=== PATIENT | male | born 1930 | race Caucasian/White ===

== ENCOUNTER 2016-10-19 18:30 | Inpatient (IN) | payer OTHER, MEDICARE ==
[~2016-10-19] VITALS: Ht 172.7 cm; Wt 83.5 kg
--- NOTE | ~2016-10-19 | 2DMMODE ---
[facility] [place] [address] 2 D/M-MODE ECHOCARDIOGRAM Name: MAISHA OLIVER Room #: 211-P [facility] IN M.R.#: [id number] Admission: 10/19/16 Attend Phys: Sandra Rodrigues Discharge: Date of : 31 Date of Service: 10/20/16 1035 Report #: [id number] THIS REPORT FOR: //name// Transthoracic Echocardiography Ordering physician: Dmitriy Grijalva Referring physician: MD Imelda Garcia Eric K. Leroy, Omer [employer] Salesperson: JOSE ANTONIO Multani Indications/History: Pulmonary embolism. BP: 138 / HR: 64bpm Height: 68in Weight: 179.6lb 84 Study data: M-mode, complete 2D, complete spectral Doppler, and color Doppler. Location: Echo laboratory. Routine. Image quality was fair. 2D measurements Normal Normal LVID ED 53.1mm 36-57 IVS ED 10.9mm 6-11 LVID ES 36.5mm 23-40 LVPW ED 12mm 6-11 LA volume 30ml/m2 16-28 AoRoot diam 37.1mm 21-37 index ED LVOT diameter 21mm 18-23 Findings: Left ventricle: The cavity size was normal. Wall thickness was normal. Systolic function was normal. The estimated ejection fraction was in the range of 55% to 60%. Wall motion was normal. Right ventricle: The cavity size was normal. Systolic function was normal. Right atrium: The atrium was dilated. Left atrium: The atrium was normal in size. Volume index: 30ml/m2 (S). Aortic valve: Trileaflet; mildly calcified leaflets. Doppler: There was no stenosis. No regurgitation. [facility] [place] [address] 2 D/M-MODE ECHOCARDIOGRAM Name: MAISHA OLIVER Room #: 211-P [facility] IN M.R.#: [id number] Admission: 10/19/16 Attend Phys: Julio ChoKaushik Sandra Lafleur Discharge: Date of : 31 Date of Service: 10/20/16 1035 Report #: [id number] Peak velocity: 143.5cm/s (S). Mitral valve: Mildly calcified annulus. Doppler: There was no evidence for stenosis. Mild regurgitation. Peak E-wave velocity: 86.8cm/s. Peak gradient: 3mm Hg (D). Peak A-wave velocity: 88.3cm/s. Tricuspid valve: Structurally normal valve. Doppler: There was no evidence for stenosis. No regurgitation. Regurgitant peak velocity: 303.8cm/s. Peak RV-RA gradient: 37mm Hg (S). Pulmonic valve: Structurally normal valve. Doppler: There was no evidence for stenosis. No regurgitation. Pericardium: There was no pericardial effusion. Aorta: Aortic root: The aortic root was normal in size. Pulmonary artery: Systolic pressure was estimated to be 42mm Hg. Diastolic function: Doppler parameters are consistent with abnormal left ventricular relaxation (grade 1 diastolic dysfunction). Systemic veins: Inferior vena cava: The vessel was dilated; the respirophasic diameter changes were in the normal range (= 50%). Conclusions 1. Left ventricle: Systolic function was normal. The estimated ejection fraction was in the range of 55% to 60%. Wall motion was normal. Doppler parameters are consistent with abnormal left ventricular relaxation (grade 1 diastolic dysfunction). 2. Aortic valve: Trileaflet; mildly calcified leaflets. There was no stenosis. No regurgitation. 3. Mitral valve: Mildly calcified annulus. Mild regurgitation. 4. Pulmonary arteries: Systolic pressure was estimated to be 42mm Hg. 5. Pericardium, extracardiac: There was no pericardial effusion. <ELECTRONICALLY SIGNED> By: Kevin Toth MD, [facility] 10/20/16 1250 1035 49 Kevin Toth MD, FAC /marcia
--- NOTE | ~2016-10-19 | HC ---
[facility] [place] [address] CONSULTATION Name: MAISHA OLIVER Room #: 211-P [facility] IN M.R.#: [id number] Admission: 10/19/16 Attend Phys: Julio Lafleur MD Discharge: Date of : 31 Report #: [id number] THIS REPORT FOR: //name// CC: Moy Mcclain DATE OF SERVICE: 10/20/2016 DATE OF SERVICE: 10/20/2016 INDICATION: CAD. HISTORY OF PRESENT ILLNESS: This is an 86-year-old gentleman with a history of CABG, coronary angioplasty, presenting with chest pains, and shortness of breath. The other night, while walking up a flight of stairs, he developed significant dyspnea and chest discomfort. He had to rest for his symptoms to resolve. When I saw him in the office yesterday, he was noted to have new EKG changes and he was originally scheduled for a cardiac catheterization next week. However, last evening, he had similar symptoms at rest, although less intense. He presented to the ER for an evaluation. The D-dimer was markedly abnormal. A VQ scan revealed bilateral mismatch deficits consisting with high probability for PE. He remained stable with no further episodes of chest pains, shortness of breath or congestion. PAST MEDICAL HISTORY: CABG in 1998. NONSTEMI in August 2015, undergoing placement of a drug-eluting stent to the left main/proximal LAD. He has a patent SILVA to the distal LAD, patent sequential vein graft to the first and second obtuse marginal arteries. There is severe diffuse disease in the vein graft to a small PDA, medical therapy is recommended. History of hypertension, hypercholesterolemia, chronic edema, spinal stenosis and chronic pain syndrome. ALLERGIES: CONTRAST, ZETIA, BRILINTA. MEDICATIONS: Include Crestor 10 mg, Toprol-XL 25 mg, aspirin once a day, Imdur 30 mg, Plavix 75 mg daily, Protonix and losartan. SOCIAL HISTORY: Negative for tobacco use. FAMILY HISTORY: Negative for premature CAD. REVIEW OF SYSTEMS: A full 10-point review of systems performed. Only the pertinent positives and negatives are described in the HPI. PHYSICAL EXAMINATION: [facility] [address] [place] [address] CONSULTATION Name: MAISHA OLIVER Room #: 211-P [facility] IN M.R.#: [id number] Admission: 10/19/16 Attend Phys: Julio Lafleur MD Discharge: Date of : 31 Report #: [id number] VITAL SIGNS: Blood pressure is 140/70, heart rate is 80 beats per minute. GENERAL APPEARANCE: An elderly appearing male in no acute respiratory distress. HEAD AND EYES: Normocephalic. Sclerae are anicteric. ENT: Oral mucosa moist. NECK: Supple. LUNGS: Clear to auscultation. CARDIAC: Regular rate and rhythm, S1, S2 positive. ABDOMEN: Soft. EXTREMITIES: No major joint deformities. NEUROLOGIC: Alert and oriented x 3 ECG reveals sinus rhythm, inferior wall PR, T-wave inversions in V1-V3. LABORATORY VALUES: Peak troponin is 0.14. White count is 6.8, hemoglobin 14.4, sodium is 139, creatinine is 1.3. ASSESSMENT: 1. Bilateral pulmonary emboli, currently on Levonox. Would favor Xarelto if possible. We will await pulmonary recommendations. The etiology is unclear, will arrange for lower extremity Doppler studies. 2. White count 6.8, hemoglobin 14.4. 3. Minimal troponin elevation in the indeterminate range. This is probably not indicative of an infarct, more likely related to mismatch from hypoxia. 4. Coronary artery disease/CABG/coronary intervention. Stable, continue with medical therapy. At this time, we will stop Plavix altogether. 5. Hypertension. 6. Hypercholesterolemia. 7. Spinal stenosis. Thank you for allowing me to participate in the care of your patient. <ELECTRONICALLY SIGNED> By: Elkin Salomon MD 10/20/16 0934 0807 0831 Elkin Salomon MD /nt
--- NOTE | ~2016-10-19 | EKG ---
[address] [place] [address] ELECTROCARDIOGRAM REPORT Name: MAISHA OLIVER Room #: 211-P ADM IN M.R.#: [id number] Admission: 10/19/16 Attend Phys: Blaine Minor MD Discharge: Date of : 31 Report #: [id number] THIS REPORT FOR: //name// [facility] Test Date: 2016-10-20 Test Time: 02:10:11 Pat Name: MAISHA OLIVER Department: Room: 211 P Gender: M [employer] Good[employer] Hemmer: craig : 1930 Requested By: Sofia Collins Order Number: [id number] MD: Kevin Toth Measurements Intervals [place] Rate: 74 P: 28 OR: 190 QRS: -45 QRSD: 96 T: -27 QT: 489 QTc: 543 Interpretive Statements Sinus rhythm Inferior infarct, age indeterminate Abnormal T, probable ischemia, anterior leads Prolonged QT interval No previous ECG available for comparison Electronically Signed On 10-20-2016 7:49:09 INTERNAL SALESPERSON by Kevin Toth [email or web address] <ELECTRONICALLY SIGNED> By: Kevin Toth MD, [facility] 10/20/16 0749 9 9 Kevin Toth MD, [facility] /EPI
--- NOTE | ~2016-10-19 | HC ---
[facility] [place] [address] CONSULTATION Name: MAISHA OLIVER Room #: 211-P [facility] IN M.R.#: [id number] Admission: 10/19/16 Attend Phys: Julio Lafleur MD Discharge: 10/22/16 Date of : 31 Report #: [id number] THIS REPORT FOR: //name// CC: Moy Mcclain PRIMARY CARE PHYSICIAN: Moy Segura M.D. REFERRING PHYSICIAN: Elkin Salomon M.D. REASON FOR REFERRAL: Pulmonary embolus. HISTORY OF PRESENT ILLNESS: The patient is an 86-year-old white male who presented to the Emergency Room with progressive shortness of breath and chest pain. Subsequent evaluation including V/Q scan showed high probability scan for pulmonary embolus. A pulmonary consultation was requested. The patient has known coronary artery disease. He is followed by Dr. Salomon. He has had coronary artery bypass surgery in the past along with PTCA and stent placement. About a year ago, he started to develop chronic back pain due to worsening spondylolisthesis. As a result, he has been sedentary for the past year. About 3 days prior to presentation, the patient developed mid sternal chest discomfort. Tuesday evening, his chest pain worsened with presumed "sensation of doom." Symptoms subsided. He was then seen by Dr. Salomon yesterday. He was scheduled for outpatient cardiac catheterization next week. With worsening symptoms, he presented to the Emergency Room. The patient otherwise denies any family history of VTE or venous thromboembolic disease. He denies any recent travel or recent trauma or surgery. PAST MEDICAL HISTORY: As mentioned above including coronary artery disease, undergone coronary artery bypass surgery in 1998, a history of non-STEMI in 2014, undergoing stent placement along with multiple PTCAs in the past. He also has a history of hypertension, hypercholesterolemia, spinal stenosis and spondylolisthesis with chronic back pain. PAST SURGICAL HISTORY: Otherwise, as mentioned above. ALLERGIES: Contrast dye which causes an anaphylactic reaction, Brilinta causes dyspnea and Zetia causes thrombocytopenia. [facility] [address] [place] [address] CONSULTATION Name: MAISHA OLIVER Room #: 211-P [facility] IN M.R.#: [id number] Admission: 10/19/16 Attend Phys: Julio Lafleur MD Discharge: 10/22/16 Date of : 31 Report #: [id number] HOME MEDICATIONS: Include Crestor, Toprol, aspirin, Imdur, Plavix, Protonix and losartan. FAMILY HISTORY: Remarkable for coronary artery disease in the father. Both parents in a motor vehicle accident. SOCIAL HISTORY: He had smoked for several years, quit in 1963 after Surgeon General had announced that tobacco products are unhealthy. He is . He is a retired associate field service engineer. He drinks occasionally. REVIEW OF SYSTEMS: The patient states that he has lost about 20 pounds because of dental problems. He is scheduled to have 2 crown work performed soon. Otherwise, a 10-point system review negative other than mentioned above. PHYSICAL EXAMINATION: GENERAL: He is awake and alert, in no apparent distress. VITAL SIGNS: Temperature is 98.4 degrees Fahrenheit, pulse is 64, respiratory rate is 20, blood pressure 137/79 mmHg and saturation 97%. HEENT: Normocephalic and atraumatic. NECK: Supple, without any lymphadenopathy or thyromegaly. CHEST: Breath sounds are clear bilaterally without any rales or wheezes. CARDIOVASCULAR: Normal S1 and S2. There are no murmurs, rubs or gallop. There is no JVD. There is no carotid bruit. Pulses are 2+/4+ bilaterally. ABDOMEN: Soft and nontender. No organomegaly or masses felt. EXTREMITIES: There is no edema, cyanosis or clubbing. LABORATORY DATA: V/Q scan again shows high probability scan. D-dimer is 13.3. Troponin 0.11. Leg Doppler ultrasound shows non-occlusive DVT involving his right popliteal vein. IMPRESSION: 1. High probability scan in this 86-year-old white male. He has been sedentary for the past year due to chronic back pain. The patient likely has bilateral pulmonary embolus along with right popliteal deep vein thrombosis. This is felt to be provoked with risk factors. 2. Coronary artery disease, status post coronary artery bypass surgery. 3. Chronic back pain due to spinal stenosis. He is scheduled to be evaluated by Dr. Rios for possible surgery. 4. Hypertension. RECOMMENDATION AND DISCUSSION: Would continue anticoagulation either with heparin or Lovenox. Once stable, we can talk about oral anticoagulant, either Coumadin or direct oral anticoagulant. The patient has low risk for bleeding, and therefore, products other than Pradaxa can be considered. [address] [address] CONSULTATION Name: MELODYMAISHA NICOLAS Room #: 211-P [facility] IN M.R.#: [id number] Admission: 10/19/16 Attend Phys: Julio Lafleur MD Discharge: 10/22/16 Date of : 31 Report #: [id number] With his sedentary state due to chronic back pain, duration of anticoagulation is likely prolonged as long as he is sedentary. He is scheduled to see Dr. Rios to consider possible back surgery. I have asked him to delay this at least 3-4 weeks until he is stable from his pulmonary embolus standpoint. If surgery is scheduled, then I will recommend placing a temporary retrievable IVC filter during the perioperative period, then to remove this after he has recovered. He also needs a dental surgery. This will have to be delayed at least 2-3 months for the same reason as mentioned above. In terms of oral anticoagulant, we will check with insurance to see which agent is covered, either Coumadin or direct oral anticoagulant. The above findings were discussed in detail with the patient and his . All questions were answered. Thank you for this consultation. <ELECTRONICALLY SIGNED> By: Alo Mcclain MD 10/22/16 1647 1240 1529 Alo Mcclain MD /nt
--- NOTE | ~2016-10-19 | EKG ---
[place] [address] [address] [facility] [place] [address] ELECTROCARDIOGRAM REPORT Name: MAISHA OLIVER Room #: 211-P ADM IN M.R.#: [id number] Admission: 10/19/16 Attend Phys: Blaine Minor MD Discharge: Date of : 31 Report #: [id number] THIS REPORT FOR: //name// [facility] ED Test Date: 2016-10-19 Test Time: 18:34:46 Pat Name: MAISHA OLIVER Department: Room: 211 Gender: M Phys Therapist: ezequiel elise : 1930 Requested By: Dmitriy Grijalva Order Number: [id number] MD: Kevin Toth Measurements Intervals [place] Rate: 85 P: 39 [place]: 174 QRS: -49 QRSD: 90 T: -30 QT: 434 QTc: 517 Interpretive Statements Sinus rhythm Abnormal R-wave progression, late transition Inferior infarct, age indeterminate Abnormal T, consider ischemia, anterior leads Prolonged QT interval No previous ECG available for comparison Electronically Signed On 10-20-2016 7:38:26 [employer] [employer] [address] by Kevin Toth [email or web address] <ELECTRONICALLY SIGNED> By: Kevin Toth MD, [facility] 10/20/16 0738 1834 183 Kevin Toth MD, [facility] /EPI
[~2016-10-19 18:30] MED LIST: AVODART0.5 MG PO; BRILINTA90 MG PO; CHILDREN'S ASPI81 MG PO; COZAAR 50 MG TA50 M2 PO; CRESTOR10 MG PO; IMDUR 30 MG TAB30 M1 PO; MULTI VITAMIN1 EACH PO; NORVASC 5 MG TAB5 MG PO; TOPROL XL25 MG PO; VESICARE10 M1 PO
[2016-10-19 18:35] VITALS: BP 141/88
[2016-10-19 19:08] LABS: ABSOLUTE NEUTROPHILS 4.7 thou/uL (1.4-8.2); BASOPHILS 0.5 % (0.0-2.0); EOSINOPHILS 1.1 % (0.0-3.0); HEMATOCRIT 42.9 % (42.0-52.0); HEMOGLOBIN 14.4 gm/dL (14.0-18.0); MCH 31.5 pg (26.0-34.0); MCHC 33.5 % (28.0-37.0); MCV 93.9 fL (80.0-100.0); MONOCYTES 11.6 % (1.0-8.0); PLATELET COUNT 112 thou/uL (150-400); POLYS 68.8 % (36.0-66.0); RBC 4.57 mil/uL (4.50-6.00); RDW 14.5 % (10.5-14.5); WBC 6.8 thou/uL (4.0-11.0)
[2016-10-19 19:09] LABS: MANUAL DIFF NO
[2016-10-19] MEDS ORDERED: PLAVIX 75 MG TA75 MG PO (19:11)
[2016-10-19] MEDS ORDERED: PERCOCET 7.5-31 EACH PO (19:12)
[2016-10-19] MEDS ORDERED: PROTONIX40 M1 PO (19:13)
[2016-10-19 19:16] LABS: CALCIUM 8.5 mg/dL (8.5-10.1); CREATININE 1.3 mg/dL (0.6-1.3); POTASSIUM 4.1 mmol/L (3.5-5.1)
[2016-10-19 19:29] LABS: TROPONIN-I 0.14 ng/mL (<0.04-0.07)
[2016-10-19 23:01] VITALS: BP 154/82
[2016-10-19] MEDS ORDERED: STOOL SOFTENER1 EAC2 PO (23:52)
[2016-10-20 07:45] VITALS: BP 138/84
[2016-10-20 11:50] VITALS: BP 137/79
[2016-10-20 15:48] VITALS: BP 138/85
[2016-10-20 19:44] VITALS: BP 125/74
[2016-10-21 04:09] VITALS: BP 134/89
[2016-10-21 06:34] LABS: HEMATOCRIT 40.3 % (42.0-52.0); HEMOGLOBIN 13.5 gm/dL (14.0-18.0); MCH 31.5 pg (26.0-34.0); MCHC 33.6 % (28.0-37.0); MCV 93.9 fL (80.0-100.0); RBC 4.29 mil/uL (4.50-6.00); RDW 14.6 % (10.5-14.5); WBC 6.4 thou/uL (4.0-11.0)
[2016-10-21 08:30] VITALS: BP 123/64
[2016-10-21 12:15] VITALS: BP 120/73
[2016-10-21 16:45] VITALS: BP 126/79
[2016-10-21 20:13] VITALS: BP 137/86
[2016-10-22 02:30] VITALS: BP 125/63
[2016-10-22 06:36] LABS: HEMATOCRIT 41.7 % (42.0-52.0); MCH 31.6 pg (26.0-34.0); MCHC 33.5 % (28.0-37.0); MCV 94.2 fL (80.0-100.0); RBC 4.43 mil/uL (4.50-6.00); RDW 14.5 % (10.5-14.5); WBC 5.7 thou/uL (4.0-11.0)
[2016-10-22 07:30] VITALS: BP 140/83
[2016-10-22] MEDS ORDERED: PRADAXA150 MG PO (08:20)
[2016-10-22 10:26] VITALS: BP 140/83
[2016-10-22 11:30] VITALS: BP 106/73
== END 2016-10-22 13:15 | disposition home or self-care (01) | DRG 176 ==
LOC: ER 18:30 → EROBS 22:14 → 2N 22:14
PROVIDERS: Internal Medicine Pulmonary Disease; Nurse Practitioner
DX: I26.99 Other pulmonary embolism without acute cor pulmonale (principal); I82.431 Acute embolism and thrombosis of right popliteal vein; E78.00 Pure hypercholesterolemia, unspecified; M54.9 Dorsalgia, unspecified; M43.10 Spondylolisthesis, site unspecified; I25.10 Atherosclerotic heart disease of native coronary artery without angina pectoris; G89.4 Chronic pain syndrome; M48.00 Spinal stenosis, site unspecified; Z96.653 Presence of artificial knee joint, bilateral; Z79.82 Long term (current) use of aspirin; Z79.899 Other long term (current) drug therapy; Z95.5 Presence of coronary angioplasty implant and graft; Z95.1 Presence of aortocoronary bypass graft; Z88.8 Allergy status to other drugs, medicaments and biological substances; Z91.041 Radiographic dye allergy status; Z79.01 Long term (current) use of anticoagulants; I25.2 Old myocardial infarction; Z82.49 Family history of ischemic heart disease and other diseases of the circulatory system; Z87.891 Personal history of nicotine dependence
CPT/HCPCS: 10081

== ENCOUNTER 2017-07-06 15:06 | Inpatient (IN) | payer OTHER, MEDICARE ==
[2017-07-06] VITALS (9 sets, daily range): BP systolic 129–150; BP diastolic 74–85
[~2017-07-06] VITALS: Ht 165.1 cm; Wt 84.1 kg
--- NOTE | ~2017-07-06 | EKG ---
[address] [place] [address] ELECTROCARDIOGRAM REPORT Name: MAISHA OLIVER Room #: 170-8 ADM IN M.R.#: [id number] Admission: 07/06/17 Attend Phys: Elkin Salomon MD Discharge: Date of : 31 Report #: [id number] THIS REPORT FOR: //name// [facility] ED Test Date: 2017-07-06 Test Time: 15:05:43 Pat Name: MAISHA OLIVER Department: Room: 170 Gender: M Oyster Grower: MZOOK : 1930 Requested By: Reji Mcdonald Order Number: [id number] MD: Stephen Kruger Measurements Intervals [place] Rate: 82 P: 36 CT: 205 QRS: -42 QRSD: 95 T: 103 QT: 396 QTc: 463 Interpretive Statements Sinus rhythm Probable inferior infarct, recent Lateral leads are also involved Electronically Signed On 07-06-2017 16:26:26 CDT by Stephen Kruger [email or web address] <ELECTRONICALLY SIGNED> By: Stephen Kruger MD 07/06/17 1626 1505 1505 MD CECI Patino
--- NOTE | ~2017-07-06 | 2DMMODE ---
[facility] [address] [place] [address] 2 D/M-MODE ECHOCARDIOGRAM Name: MAISHA OLIVER [facility] Room #: 209-P ADM IN M.R.#: [id number] Admission: 07/06/17 Attend Phys: Elkin Salomon MD Discharge: Date of : 31 Date of Service: 07/07/17 1254 Report #: [id number] THIS REPORT FOR: //name// APPROVED REPORT Study performed: 07/07/2017 12:00:21 EXAM: Comprehensive 2D, Doppler, and color-flow Echocardiogram Patient Location: Bedside Room #: 209 Status: routine BSA: 1.95 HR: 58 bpm BP: 161/97 mmHg Other Information Study Quality: Adequate Indications Non STEMI CAD Hypertension/HDD 2D Dimensions RVDd: 34.44 mm LVEF(%): 57.50 (>50%) IVSd: 11.45 (7-11mm) LVOT Diam: 23.07 (18-24mm) LVDd: 56.76 mm PWd: 10.54 (7-11mm) Ascending Ao: 36.40 (22-36mm) LVDs: 39.36 (25-40mm) Aortic Root: 38.04 mm IVC: 16.00 mm Machado's LVEF: 57.50 % Volumes Left Atrial Volume (Systole) Single Plane 4CH: 56.42 mL Single Plane 2CH: 49.90 mL LA ESV Index: 32.00 mL/m2 Aortic Valve AoV Peak Dale.: 1.02 m/s AO Peak Gr.: 4.19 mmHg LVOT Max P.99 mmHg LVOT Max V: 1.00 m/s PHIL Vmax: 4.07 cm2 Mitral Valve E/A Ratio: 0.9 [facility] [place] [address] [place] [address] [place] [address] 2 D/M-MODE ECHOCARDIOGRAM Name: MAISHA OLIVER [place] Room #: 209-P [facility] IN M.R.#: [id number] Admission: 07/06/17 Attend Phys: Elkin Salomon MD Discharge: Date of : 31 Date of Service: 07/07/17 1254 Report #: [id number] MV Decel. Time: 216.68 ms MV E Max Dale.: 0.74 m/s MV A Dale.: 0.83 m/s MV PHT: 62.84 ms IVRT: 129.18 ms Pulmonary Valve PV Peak Dale.: 0.60 m/s PV Peak Gr.: 1.43 mmHg Pulmonary Vein P Vein S: 0.46 m/s P Vein A: 0.27 m/s P Vein D: 0.44 m/s P Vein A Dur.: 120.0 msec P Vein S/D Ratio: 1.05 Tricuspid Valve TR Peak Dale.: 2.70 m/s TR Peak Gr.: 29.27 mmHg PA Pressure: 34.00 mmHg Left Ventricle The left ventricle is normal size. There is mild hypokinesis of the mid to basal inferior wall. There is normal left ventricular wall thickness. The left ventricular systolic function is lownormal, EF 50% LVEF is 50%. Grade I - abnormal relaxation pattern. Right Ventricle The right ventricle is normal size. The right ventricular systolic function is normal. Atria Left atrium is dilated. The right atrium size is normal. Aortic Valve The aortic valve is normal in structure. Aortic valve is calcified. No aortic regurgitation is present. There is no aortic valvular stenosis. Mitral Valve The mitral valve is normal in structure. Mild mitral regurgitation. No evidence of mitral valve stenosis. Tricuspid Valve The tricuspid valve is normal in structure. There is trace tricuspid regurgitation. The right atrial pressure is estimated at mmHg. There is mild pulmonary hypertension. [facility] [address] [place] [address] 2 D/M-MODE ECHOCARDIOGRAM Name: MAISHA OLIVER Room #: 209-P ADM IN M.R.#: [id number] Admission: 07/06/17 Attend Phys: Elkin Salomon MD Discharge: Date of : 31 Date of Service: 07/07/17 1254 Report #: [id number] Pulmonic Valve The pulmonary valve is normal in structure. Trace pulmonic regurgitation. Great Vessels The aortic root is normal in size. IVC is normal in size and collapses >50% with inspiration. Pericardium There is no pericardial effusion. <Conclusion> The left ventricle is normal size. The left ventricular systolic function is lownormal, EF 50% There is mild hypokinesis of the mid to basal inferior wall. Grade I - abnormal relaxation pattern. Left atrium is dilated. The aortic valve is normal in structure. Aortic valve is calcified. Mild mitral regurgitation. <ELECTRONICALLY SIGNED> By: Elkin Salomon MD 07/07/17 1254 1254 1254 Elkin Salomon MD /INF
--- NOTE | ~2017-07-06 | HC ---
[facility] [place] [address] CONSULTATION Name: MAISHA OLIVER Room #: 209-P [facility] IN M.R.#: [id number] Admission: 07/06/17 Attend Phys: Elkin Salomon MD Discharge: Date of : 31 Report #: [id number] THIS REPORT FOR: //name// CC: Moy Salomon DATE OF SERVICE: 07/06/2017 INDICATION: Chest pain. HISTORY OF PRESENT ILLNESS: This is an 87-year-old gentleman presenting with acute onset of substernal chest discomfort. He had finished smoking a cigar earlier today and started to walk outside. While walking up the hill, he developed heaviness across the chest area, associated with some shortness of breath. He took several sublingual nitroglycerins without any significant relief. He presents to the ER for an evaluation. There is no history of fever, chills or diarrhea. The pain in the ER has improved, although still present. The patient has a history CABG in 1998. He also has a history of multiple coronary angioplasties. In August 2015, he presented with a non-ST elevation ME, undergoing placement of a stent into the left main/proximal LAD. PAST MEDICAL HISTORY: Cath in August 2015 where it revealed a patent SILVA graft to the LAD, patent sequential SVG to OM1 and OM2. The vein graft to the PDA has severe diffuse disease and medical therapy is recommended. History of hypertension, hypercholesterolemia, chronic edema, spinal stenosis, chronic renal insufficiency. ALLERGIES: CONTRAST, ZETIA AND BRILINTA. MEDICATIONS: Include aspirin 81 mg daily, Imdur 30 mg daily, Toprol 25 mg, Protonix, Crestor 40 mg daily, Lyrica and VESIcare. SOCIAL HISTORY: Negative for tobacco use. Admits that he has been smoking a cigar about once a week. FAMILY HISTORY: Negative for premature CAD. REVIEW OF SYSTEMS: A full 10-point review of systems performed. Only the pertinent positives and negatives are described in the HPI. PHYSICAL EXAMINATION: VITAL SIGNS: Blood pressure is 130/70, heart rate is 70 beats per minute. GENERAL APPEARANCE: This is an elderly-appearing male in no acute respiratory distress. HEAD AND EYES: Normocephalic. Sclerae anicteric. [facility] [address] [place] [address] CONSULTATION Name: MAISHA OLIVER Room #: 209-P ADM IN M.R.#: [id number] Admission: 07/06/17 Attend Phys: Elkin Salomon MD Discharge: Date of : 31 Report #: [id number] ENT: Oral mucosa moist. NECK: Supple. LUNGS: Clear to auscultation. CARDIAC: Regular rate and rhythm, S1, S2 positive. ABDOMEN: Soft. EXTREMITIES: No major joint deformities, no cyanosis, 1 to 2+ chronic edema. NEUROLOGIC: Alert and oriented times 3. LABORATORY VALUES: White count 7.0, hemoglobin 14.6. Sodium is 140, creatinine is 1.8, BUN is 16. Troponin is negative. ECG reveals sinus rhythm, Q-waves in the inferior leads, ST segment depressions in I, aVL and V2. ASSESSMENTAND PLAN: 1. Unstable angina/acute coronary syndrome. His symptoms are concerning for ischemic heart disease with ST segment abnormalities on the ECG. I discussed with the patient and his , the pros and cons of a cardiac catheterization. They understand and wish to proceed. 2. Pulmonary emboli in October 2016, completed treatment, followed by pulmonary. 3. Hypercholesterolemia, continue statin therapy. 4. Hypertension, developed dizziness and losartan was discontinued. Only able to tolerate a low dose of beta avinash. 5. Edema, chronic, the patient does not want diuretic therapy. Continue with conservative therapy. Thank you for allowing me to participate in the care of your patient. <ELECTRONICALLY SIGNED> By: Elkin Salomon MD 07/07/17 0730 1614 0037 Elkin Salomon MD /nt
--- NOTE | ~2017-07-06 | CATHLAB ---
[facility] [address] [facility] [place] [address] INVASIVE PROCEDURE REPORT Name: MAISHA OLIVER Room #: 209-P [facility] IN M.R.#: [id number] Admission: 07/06/17 Attend Phys: Elkin Salomon MD Discharge: Date of : 32 Date of Service: 07/07/17 0803 Report #: [id number] THIS REPORT FOR: //name// APPROVED REPORT Patient Details The patient is a 87 year-old male Event Personnel Trini Haley, Martha Montgomery RN RN, Darlin Santos Monitor, Nanette Underwood Monitor, Darlin Oliver RN RN, Elkin Salomon [employer] Procedures Performed Art Access - R femoral artery* , Left Heart CatheterizationArt Access Indication Non-STEMI , Dyspnea, Chest pain Risk Factors Hypercholesterolemia, Coronary Artery DiseaseHypertension, Tobacco History () Previous Procedures/Diagnoses Previous CABGPrevious PCI Admission/Lab Medications/Medications given during procedure Oxygen Nasal cannula 2 l per min, 1% Lidocaine Subcut 20 ml, Versed IV 1 mg, Fentanyl IV 25 mcg Procedure Narrative The patient was brought electively to the Cardiac Catheterization Laboratory and was prepped and draped in a sterile manner. The Right Groin^ was infiltrated with 1% Lidocaine subcutaneous anesthesia. A PINNACLE 6FR Sheath #[id number] sheath was inserted into the RFA^. Coronary angiography was performed using coronary diagnostic catheters. The right coronary system was accessed and visualized with a 6FR JR 4 #[id number] catheter. The left coronary system was accessed and visualized with a 6FR JL4 #[id number] catheter. Pre-demployment femoral angiogram was performed . Closure device was deployed with a 6 Fr MYNXGRIP 6/7F #[id number]. The patient tolerated the procedure well and there were no complications associated with the procedure. A hematoma occurred. There was no hematoma. [place] [address] [place] [address] INVASIVE PROCEDURE REPORT Name: MAISHA OLIVER Room #: 209-P [facility] IN M.R.#: [id number] Admission: 07/06/17 Attend Phys: Elkin Salomon MD Discharge: Date of : 32 Date of Service: 07/07/17 0803 Report #: [id number] Intraoperative Conscious Sedation Fentanyl mcg Versed mg Fluoro Time: 4.40 minutes Dose: DAP 589.00 cGycm2 Contrast Type and Amount: Visipaque 75 ml Coronary Angiography The patient's coronary anatomy is right dominant. [place] Artery Percent Stenosis Left Main: % Prox LAD: 70 % Mid/Distal LAD: % Circumflex: 100 % RCA: 100 % Ramus: % Grafts (Complete if Previous CABG=Yes: Percent Stenosis) Diagnostic Cath Left Main Patent stent in the left main artery with mild restenosis, 20%. LAD Patent SILVA graft with an end to side anastomosis to the mid/distal LAD, with antegrade filling of the apical LAD. Diagonal 1 Small caliber vessels with moderate to severe disease, managed medically. Circumflex Patent sequential saphenous vein graft to OM1 and OM 2. There is mild disease within the mid segment of the vein graft, to 30%. 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 Left Ventriculography Left Ventriculography was not performed. A ventriculogram was not performed in view of an elevated creatinine level. An LVEDP was measured. There is no gradient across the outflow tract. Hemodynamics The aortic pressure is 157/76 mmHg with a mean of 106 mmHg. Conclusion 1. 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 2. Patent stent in the left main artery with mild restenosis. 3. Patent SILVA graft to mid/distal LAD. 4. Patent sequential SVG to OM1 and OM 2. [address] [address] INVASIVE PROCEDURE REPORT Name: MAISHA OLIVER [place] Room #: 209-P [facility] IN M.R.#: [id number] Admission: 07/06/17 Attend Phys: Elkin Salomon MD Discharge: Date of : 32 Date of Service: 07/07/17 0803 Report #: [id number] Recommendations Medical Therapy <ELECTRONICALLY SIGNED> By: Elkin Salomon MD 07/07/17802 2 2 Elkin Salomon MD /INF
[~2017-07-06 15:06] MED LIST changes: +PERCOCET 7.5-31 EACH PO; +PLAVIX 75 MG TA75 MG PO; +PRADAXA150 MG PO; +PROTONIX40 M1 PO; +STOOL SOFTENER1 EAC2 PO
[2017-07-06 15:22] LABS: ABSOLUTE NEUTROPHILS 4.9 thou/uL (1.4-8.2); BASOPHILS 0.4 % (0.0-2.0); EOSINOPHILS 4.4 % (0.0-3.0); HEMATOCRIT 43.2 % (42.0-52.0); HEMOGLOBIN 14.6 gm/dL (14.0-18.0); LYMPHOCYTES 16.7 % (24.0-44.0); MANUAL DIFF NO; MCH 31.1 pg (26.0-34.0); MCHC 33.7 g/dL (28.0-37.0); MCV 92.3 fL (80.0-100.0); MONOCYTES 8.5 % (1.0-8.0); PLATELET COUNT 117 thou/uL (150-400); RBC 4.68 mil/uL (4.50-6.00); RDW 13.6 % (10.5-14.5)
[2017-07-06 15:35] LABS: ANION GAP 9 mmol/L (7-16); BUN 16 mg/dL (7-18); CALCIUM 9.1 mg/dL (8.5-10.1); CHLORIDE 105 mmol/L (98-107); CO2 26 mmol/L (21-32); CREATININE 1.8 mg/dL (0.7-1.3); GLUCOSE 151 mg/dL (74-106); POTASSIUM 4.1 mmol/L (3.5-5.1); SODIUM 140 mmol/L (136-145)
[2017-07-06 15:41] LABS: PROTIME 10.4 Seconds (9.3-11.4)
[2017-07-06 15:44] LABS: ALBUMIN 3.5 g/dL (3.4-5.0); ALKALINE PHOSPHATASE 84 U/L (46-116); SGOT 19 U/L (15-37); SGPT 12 U/L (30-65); TOTAL BILIRUBIN 0.5 mg/dL (<0.1-1.0); TOTAL PROTEIN 6.9 g/dL (6.4-8.2); TROPONIN-I < 0.04 ng/mL (<0.04-0.07)
[2017-07-06] MEDS ORDERED: LYRICA25 MG PO (16:01)
[2017-07-06] MEDS ORDERED: AMPICILLIN SODIU2 GM PO (16:02)
[2017-07-07 03:15] LABS: HEMATOCRIT 42.2 % (42.0-52.0); HEMOGLOBIN 14.1 gm/dL (14.0-18.0); MCH 30.9 pg (26.0-34.0); MCHC 33.4 g/dL (28.0-37.0); MCV 92.4 fL (80.0-100.0); RBC 4.57 mil/uL (4.50-6.00); RDW 13.3 % (10.5-14.5); WBC 4.4 thou/uL (4.0-11.0)
[2017-07-07 03:44] LABS: CALCIUM 8.8 mg/dL (8.5-10.1); CREATININE 1.5 mg/dL (0.7-1.3); POTASSIUM 4.2 mmol/L (3.5-5.1); TOTAL BILIRUBIN 0.4 mg/dL (<0.1-1.0); TOTAL PROTEIN 6.3 g/dL (6.4-8.2)
[2017-07-07 04:04] VITALS: BP 172/90
[2017-07-07 07:36] VITALS: BP 161/97
[2017-07-07 11:21] VITALS: BP 115/62
[2017-07-07 19:21] VITALS: BP 120/76
[2017-07-08 04:46] VITALS: BP 115/70
[2017-07-08 08:00] VITALS: BP 136/73
[2017-07-08 12:00] VITALS: BP 105/64
[2017-07-08] MEDS ORDERED: CLOPIDOGREL75 MG PO (12:12)
[2017-07-08 12:59] VITALS: BP 105/64
== END 2017-07-08 13:46 | disposition home or self-care (01) | DRG 282 ==
LOC: ER 15:06 → 2N 15:22 → EROBS 15:22 → 2N 16:34
PROVIDERS: Internal Medicine; Physician Assistant
PROC: 4A023N7 Measurement of Cardiac Sampling and Pressure, Left Heart, Percutaneous Approach (ICD-10-PCS; principal; 2017-07-07)
PROC: B2111ZZ Fluoroscopy of Multiple Coronary Arteries using Low Osmolar Contrast (ICD-10-PCS; principal; 2017-07-07)
PROC: B2151ZZ Fluoroscopy of Left Heart using Low Osmolar Contrast (ICD-10-PCS; principal; 2017-07-07)
DX: I21.4 Non-ST elevation (NSTEMI) myocardial infarction (principal); N40.0 Benign prostatic hyperplasia without lower urinary tract symptoms; E78.00 Pure hypercholesterolemia, unspecified; I12.9 Hypertensive chronic kidney disease with stage 1 through stage 4 chronic kidney disease, or unspecified chronic kidney disease; N18.9 Chronic kidney disease, unspecified; Z96.653 Presence of artificial knee joint, bilateral; G62.9 Polyneuropathy, unspecified; F17.210 Nicotine dependence, cigarettes, uncomplicated; I25.2 Old myocardial infarction; Z95.5 Presence of coronary angioplasty implant and graft; Z95.1 Presence of aortocoronary bypass graft; Z86.711 Personal history of pulmonary embolism; Z88.8 Allergy status to other drugs, medicaments and biological substances; Z91.041 Radiographic dye allergy status; Z23 Encounter for immunization; N18.3 Chronic kidney disease, stage 3 (moderate)
CPT/HCPCS: 10081

== ENCOUNTER → 2020-04-15 | Outpatient (CLI) | payer OTHER, MEDICARE | LOC: SJCVC 12:57 | DX: R94.31 Abnormal electrocardiogram [ECG] [EKG] (principal); I11.9 Hypertensive heart disease without heart failure; I25.10 Atherosclerotic heart disease of native coronary artery without angina pectoris; E78.5 Hyperlipidemia, unspecified; F17.210 Nicotine dependence, cigarettes, uncomplicated; Z79.899 Other long term (current) drug therapy ==

== ENCOUNTER → 2020-12-01 | Outpatient (CLI) | payer OTHER, MEDICARE ==
[~2020-12-01] MED LIST changes: +AMPICILLIN SODIU2 GM PO; +CLOPIDOGREL75 MG PO; +LYRICA25 MG PO
== END ==
LOC: SJCVCIMAG 10-21 15:19
PROVIDERS: ATTEND Internal Medicine Cardiovascular Disease
DX: I49.3 Ventricular premature depolarization (principal); I21.4 Non-ST elevation (NSTEMI) myocardial infarction; I25.10 Atherosclerotic heart disease of native coronary artery without angina pectoris; I10 Essential (primary) hypertension; E78.00 Pure hypercholesterolemia, unspecified; R60.9 Edema, unspecified; K21.9 Gastro-esophageal reflux disease without esophagitis; F17.210 Nicotine dependence, cigarettes, uncomplicated; F17.290 Nicotine dependence, other tobacco product, uncomplicated; Z98.61 Coronary angioplasty status; Z95.1 Presence of aortocoronary bypass graft; Z88.8 Allergy status to other drugs, medicaments and biological substances; Z79.82 Long term (current) use of aspirin; Z79.899 Other long term (current) drug therapy; Z86.711 Personal history of pulmonary embolism